=== PATIENT | male | born 1975 | race Caucasian/White ===

== ENCOUNTER 2024-12-09 08:17 | Emergency (ER) | payer OTHER ==
[~2024-12-09] VITALS: Ht 170.2 cm; Wt 120.3 kg
[2024-12-09 08:20] VITALS: PULSE 95; RESP 20; TEMP 98.2; O2SAT 96
[2024-12-09] MEDS ORDERED: AUGMENTIN 500-1 EACH PO (09:02)
== END 2024-12-09 09:06 | disposition home or self-care (01) ==
LOC: FSED 08:25
DX: J01.90 Acute sinusitis, unspecified (principal); I10 Essential (primary) hypertension
CPT/HCPCS: 99284